=== PATIENT | female | born 1935 | race Caucasian/White ===

== ENCOUNTER 2018-10-15 08:23 | Day surgery (SDC) | payer MEDICARE, BC ==
[~2018-10-15 08:23] MED LIST: FENTANYL 100MCG/2ML SOL ONE; MIDAZOLAM 2 MG/2 ML SOL ONE
[2018-10-15] MEDS ORDERED: ACETAZOLAMIDE 250 MG PO ONE (08:31)
[2018-10-15] MEDS: TETRACAINE HCL 0.5 % 1 DROP SOL ONE ×3 (08:40→09:49)
[2018-10-15] MEDS: PHENYLEPHRINE HCL 10% OPHTHAL SOL ONE ×2 (08:40→08:52)
[2018-10-15] MEDS: CYCLOPENTOLATE 1% SOL ONE ×2 (08:41→08:52)
[2018-10-15] MEDS: KETOROLAC 0.5% OPTH 60 DROP SOL ONE ×2 (08:41→08:53)
[2018-10-15] MEDS ORDERED: LIDOCAINE HCL 1% MPF 30 SOL ONE (09:42)
[2018-10-15] MEDS ORDERED: BSS 500 ML 500 ML IR ONE (09:42)
[2018-10-15] MEDS ORDERED: IMPRIMIS ONE (09:42)
[2018-10-15] MEDS ORDERED: POVIDONE IODINE 5% SOL ONE (09:42)
[2018-10-15] MEDS ORDERED: TRYPAN BLUE 0.5 ML SOL IO ONE (09:42)
[2018-10-15 10:11] VITALS: BP 110/64; PULSE 66; RESP 18; TEMP 96.9; O2SAT 96
== END 2018-10-15 10:43 | disposition home or self-care (01) | DRG 125 ==
LOC: SURG 08:23
PROVIDERS: ATTEND Ophthalmology
DX: H25.89 Other age-related cataract (principal)
CPT/HCPCS: J2250; J3010; A9270-GY; J2001